=== PATIENT | female | born 1995 | race Two or more races ===

== ENCOUNTER 2025-01-24 16:47 | Emergency (ER) | payer BC, SELFPAY ==
[2025-01-24 16:48] VITALS: BMI 40.2
[2025-01-24 16:57] VITALS: BP 148/93; PULSE 73; RESP 18; TEMP 37; O2SAT 97
--- NOTE | 2025-01-24 17:00 | XR_ITS ---
Examination: Shoulder right 3 views Technique: Shoulder AP internal rotation, AP external rotation, Y view shoulder, 3 views Exam date and time :January 24, 2025 1718 hours INDICATIONS: Right shoulder pain beginning one week ago. FINDINGS: No shoulder fracture or dislocation No arthritic change or calcific tendinitis IMPRESSION: Negative for osseous abnormality
--- NOTE | 2025-01-24 17:02 | PD.EDUPEX ---
Upper Extremity Injury RME/HPI General Chief Complaint: Extremity Injury, Upper Stated Complaint: RIGHT SHOULDER PAIN Time Seen by Provider: 01/24/25 16:56 Arrival date/time: 01/24/25 16:47 RME / HPI RME / HPI narrative: 29-year-old female patient came in for evaluation regarding right shoulder blade pain onset of symptoms for almost 1 week now, has pain to the right shoulder blade radiating to the neck, worse with range of motion of the shoulder. Denies any trauma. Denies any fever. Denies any chest pain. Denies any other complaints no medication was taken prior to arrival. Related Data Previous Rx's ?Medication ?Instructions ?Recorded cyclobenzaprine 10 mg tablet 10 mg PO TID PRN muscle spasm #30 01/24/25 tabs ibuprofen 800 mg tablet 800 mg PO Q8H PRN pain #30 tabs 01/24/25 Allergies Allergy/AdvReac Type Severity Reaction Status Date / Time No Known Allergies Allergy Verified 01/24/25 16:50 Review of Systems Review of Systems Narrative Review of Systems: Review of system reviewed and within normal limits except mentioned in HPI ED Exam Narrative Physical exam: VITAL SIGNS: Reviewed. GENERAL APPEARANCE: Alert and interactive, follows commands, no acute distress, HEAD AND FACE: Non-traumatic. ENT: PERRL, pink conjunctivitis, eyelid no trauma, Mucous membrane moist. NECK: Supple, nontender, no nuchal rigidity. CHEST: No tenderness, no crepitus, no paradoxical movement, no retractions. LUNGS: Clear, well ventilated, symmetric, no rales, no wheezing, no ronchi, no stridor, good breath sounds bilaterally. HEART: Regular rate, regular rhythm, no murmur, no gallops. ABDOMEN: Soft, positive bowel sounds, nondistended, no guarding, nontender, no rebound, no masses, RECTAL: Deferred. GENITAL: Deferred. NEUROLOGICAL: Gross motor function intact sensory function intact, Appropriate for age. MUSCULOSKELETAL: Right shoulder blade tenderness no deformity no masses palpated, low back nontender, full range of motion. EXTREMITIES: Nontender, full range of motion. SKIN: Color pink, dry, no rash, no lacerations, no abrasions, no contusions. LYMPHATICS: Deferred. Course Quality Measures none Orders Category Date Time Status sling [Splint / Immobilizer] STAT Care 01/24/25 17:00 Active XR shoulder RT min 2V Stat Exams 01/24/25 17:00 Completed CYCLObenzaPRINE [Flexeril] Med 01/24/25 17:00 Discontinued 10 mg PO X1 ONE Ketorolac Inj [Toradol Inj] Med 01/24/25 17:00 Discontinued 30 mg IM X1 ONE Vital Signs Vital signs: Vital Signs Temperature 98.6 F 01/24/25 16:57 Pulse Rate 73 01/24/25 16:57 Respiratory Rate 18 01/24/25 16:57 Blood Pressure 148/93 H 01/24/25 16:57 Pulse Oximetry (%) 97 01/24/25 16:57 Oxygen Delivery Method Room Air 01/24/25 16:57 Extremity Injury [facility] Narrative [facility] Narrative:: 29-year-old female patient came in for evaluation regarding right shoulder blade pain onset of symptoms for almost 1 week now, has pain to the right shoulder blade radiating to the neck, worse with range of motion of the shoulder. Denies any trauma. Denies any fever. Denies any chest pain. Denies any other complaints no medication was taken prior to arrival. X-ray of the area shoulder, came back unremarkable. Results discussed with the patient. Patient received arm sling. Patient data External records reviewed:: None Clinical information provided by:: patient Social determinants that could affect healthcare access:: none Patient has the following chronic illnesses:: None How is presenting disease/condition affected by chronic disease/condition?: no chronic disease Evaluation data The following diagnostics were reviewed and interpreted by me:: radiology exam(s) Lab and/or radiology exams considered but not ordered:: None Interpretation Summary: See results in MDM Medications / Prescriptions Medications or Prescriptions considered but not ordered:: None Medication administrations:: Medication Administration History Discontinued Medications Cyclobenzaprine HCl (Cyclobenzaprine 5 Mg Tablet) 10 mg PO X1 ONE Stop: 01/24/25 17:01 Last Admin: 01/24/25 17:52 Dose: 10 mg Documented By: JHON Ketorolac Tromethamine (Ketorolac Inj 60 Mg/2 Ml Vial) 30 mg IM X1 ONE Stop: 01/24/25 17:01 Last Admin: 01/24/25 17:52 Dose: 30 mg Documented By: JHON Toradol and Flexeril Consultations Consultation(s) initiated? (list below): No Diagnosis Upper Extremity Injury Differential Diagnosis: other (Right shoulder pain right shoulder blade pain, rotator cuff injury cervical radiculopathy) Most likely diagnosis given after review of the tests above:: Surgical blade pain Admission Indicated Admission indicated?: not indicated Admission Request Was there a request for admission?: No Disposition Plan Disposition Plan: Discharge Discharge Attestation Discharge Attestation: The patient was given an opportunity to ask questions and understood the discharge instructions. Discharge instructions specifically effects, indications for sooner follow up or return to the emergency department, and the expected course of current diagnosis. Patient condition: Stable Discharge Plan Plan Patient Disposition: HOME (Self Care) Discharge Disposition comment: Stable Prescriptions/Referrals Prescriptions/Med Rec: New ibuprofen 800 mg tablet 800 mg PO Q8H PRN (Reason: pain) Qty: 30 0RF cyclobenzaprine 10 mg tablet 10 mg PO TID PRN (Reason: muscle spasm) Qty: 30 0RF Referrals: Erna Holden FNP-C [Primary Care Provider] - In 1 week Problem List Clinical Impression: Shoulder blade pain Patient/Caregiver Discharge Instructions Discharge Activity: activity as tolerated Education Materials: The Shoulder Joint Additional Instructions: Thank you for the opportunity for serving you today. You are stable for discharged . You are advised to: Follow-up with your PCP in 1 to 2 days Return to ED for worsening of symptoms Increase oral fluids Take medication as prescribed Ask your PCP for referral to physical therapy Wear your arm sling as needed Print Language: Algerian Stand Alone Forms: [facility] Award Info., Patient Portal Info Letter
[2025-01-24] MEDS: KETOROLAC INJ 60 MG/2 ML VIAL 30 MG IM (17:52)
[2025-01-24] MEDS: CYCLObenzaPRINE 5 MG TABLET 10 MG PO (19:14)
== END 2025-01-24 19:18 | disposition home or self-care (01) ==
PROVIDERS: Emergency Provider Family Medicine; PCP Nurse Practitioner Family
DX: M25.511 Pain in right shoulder (principal)
CPT/HCPCS: 73030; 96372; 99283; J1885; A9270